=== PATIENT | female | born 1995 | race Asian ===

== ENCOUNTER 2019-09-12 11:57 | Emergency (ER) | payer OTHER ==
--- NOTE | 2019-09-12 12:04 | UC ---
General HPI - HPI Summary HPI Summary: 23 yo female presents requesting a note to fly. She tells me that she needs a note saying that she is "fit to fly" back to [facility] on 09/22/19. She has no symptoms and has no known exposure to COVID. She states she needs a note for this before she can buy a boarding pass. Denies fever, chills, sore throat, cough, SOB, chest pain, abdominal pain, n/v. - History of Current Complaint Stated Complaint: FIT TO FLY Time Seen by Provider: 09/12/19 12:04 Hx Obtained From: Patient Current Severity: None - Allergy/Home Medications Allergies/Adverse Reactions: Allergies Allergy/AdvReac Type Severity Reaction Status Date / Time No Known Allergies Allergy Verified 09/12/19 12:17 Home Medications: Home Medications NK [No Home Medications Reported] 09/12/19 [History Confirmed 09/12/19] PMH/Surg Hx/FS Hx/Imm Hx - Additional Past Medical History Additional PMH: None - Surgical History Surgical History: Yes Surgery Procedure, Year, and Place: left knee - Family History Known Family History: Positive: None - Social History Occupation: Student Lives: Dormitory/Roommates Alcohol Use: Occasionally Substance Use Type: None Smoking Status (MU): Never Smoked Tobacco Review of Systems All Other Systems Reviewed And Are Negative: No Constitutional: Positive: Negative Skin: Positive: Negative Eyes: Positive: Negative ENT: Positive: Negative Respiratory: Positive: Negative Cardiovascular: Positive: Negative Gastrointestinal: Positive: Negative Neurological/Mental Status: Positive: Negative Psychological: Positive: Negative Physical Exam - Summary Physical Exam Summary: GENERAL: NAD. WDWN. No pain distress. SKIN: No rashes, sores, lesions, or open wounds. HEENT: Head: AT/NC Eyes: EOM intact. Conjunctiva clear without inflammation or discharge. Ears: Hearing grossly normal. TMs intact, no bulging, erythema, or edema. Nose: Nasal mucosa pink and moist. NTTP maxillary and frontal sinus. Throat: Posterior oropharynx without exudates, erythema, or tonsillar enlargement. Uvula midline. NECK: Supple. Nontender. No lymphadenopathy. CHEST: CTAB. No r/r/w. No accessory muscle use. Breathing comfortably and in no distress. CV: RRR. Pulses intact. Cap refill <2seconds NEURO: Alert. PSYCH: Age appropriate behavior. Triage Information Reviewed: Yes Vital Signs: Vital Signs: Temp Pulse Resp BP Pulse Ox 99.1 F 125 10 113/78 99 09/12/19 12:14 09/12/19 12:14 09/12/19 12:14 09/12/19 12:14 09/12/19 12:14 Vital Signs Reviewed: Yes Course/Dx - Course Course Of Treatment: Discussed with pt that I could give her a note saying that she exhibits no symptoms today, but this is likely subject to change as she is not flying until 09/21. She is also requesting a doctor's signature as [place] signatures have been declined at the airports. Discussed with Dr. Dow and he said he would write a note similar to the above, which pt is not accepting. With pt's permission, I called [facility] and was able to find her a contact number and leave a message with staff there. They said they would return pt's call today as they have dealt with similar situations with other students and air travel. - Diagnoses Provider Diagnosis: Normal exam Discharge ED - Sign-Out/Discharge Documenting (check all that apply): Patient Departure All imaging exams completed and their final reports reviewed: No Studies - Discharge Plan Condition: Stable Disposition: HOME Referrals: No Primary Care Phys,NOPCP [Primary Care Provider] - Additional Instructions: Please call [facility] - Billing Disposition and Condition Condition: STABLE Disposition: Home - Attestation Statements Provider Attestation: This patient was not seen by me. I was available for consult. Chart reviewed. DASHA
[2019-09-12 12:16] VITALS: BP 113/78
== END 2019-09-12 12:25 | disposition home or self-care (01) ==
LOC: UCEAST 11:57
DX: Z00.00 Encounter for general adult medical examination without abnormal findings (principal)
CPT/HCPCS: 99211; G0463